=== PATIENT | female | born 1960 | race American Indian/Alaskan Native ===

== ENCOUNTER 2018-08-24 15:34 | Inpatient (IN) | payer SELFPAY ==
[2018-08-24 15:56] VITALS: O2SAT 98; BMI 37.5
--- NOTE | 2018-08-24 16:08 | ED PDOC ---
Arrival/HPI - General Time Seen by Provider: 08/24/18 15:43 - History of Present Illness Narrative History of Present Illness (Text): 08/24/18 16:06 Time/Duration: Other (2 days) Symptom Onset: Gradual Symptom Course: Improving Activities at Onset: Light Context: Home Past Medical History - Provider Review Nursing Documentation Reviewed: Yes - Cardiac Hx Cardiac Disorders: Yes Hx Angina: Yes (needle-like, intermittent) Hx Hypotension: Yes - Pulmonary Hx Respiratory Disorders: Yes (RAMAN) Other/Comment: quit smoking 3 years ago - Neurological Hx Neurological Disorder: Yes Hx Seizures: Yes (No seizures since her 20s) - HEENT Hx HEENT Disorder: No - Renal Hx Renal Disorder: No - Endocrine/Metabolic Hx Endocrine Disorders: No - Hematological/Oncological Hx Blood Disorders: Yes Hx Anemia: Yes (hgb 5.9 on 05/09/14) Hx Blood Transfusions: Yes (May 09-2013) Hx Blood Transfusion Reaction: No - Integumentary Hx Dermatological Disorder: No - Musculoskeletal/Rheumatological Hx Musculoskeletal Disorders: Yes (numbness in toes) Hx Falls: No - Gastrointestinal Hx Gastrointestinal Disorders: No - Genitourinary/Gynecological Hx Genitourinary Disorders: Yes (abnormal vaginal bleeding w/ abdominal and pelvic pain) Other/Comment: Fibroid uterus - Psychiatric Hx Psychophysiologic Disorder: No Hx Substance Use: No - Surgical History Other/Comment: No Romero - 2003Ectopic Pregnancies - , - Anesthesia Hx Anesthesia: Yes Hx Anesthesia Reactions: Yes (given "gas" during labor had reaction) Hx Malignant Hyperthermia: No - Suicidal Assessment Feels Threatened In Home Enviroment: No Family/Social History - Physician Review Nursing Documentation Reviewed: Yes Family/Social History: Unknown Family HX Smoking Status: Former Smoker Hx Alcohol Use: No Hx Substance Use: No Allergies/Home Meds Allergies/Adverse Reactions: Allergies FISH Allergy (Verified 08/24/18 16:09) RASH Review of Systems - Physician Review All systems were reviewed & negative as marked: Yes - Review of Systems Constitutional: absent: Fevers, Night Sweats Respiratory: absent: SOB Cardiovascular: absent: Chest Pain Gastrointestinal: absent: Diarrhea, Nausea, Vomiting Genitourinary Female: absent: Urine Output Changes Musculoskeletal: absent: Back Pain, Neck Pain Skin: Other (+right mouth droop) Neurological: Headache, Other (+tingling in right hand and foot). absent: Dizziness Physical Exam Vital Signs Reviewed: Yes Vital Signs Temp Pulse Resp BP Pulse Ox 08/24/18 15:48 97.6 F 77 18 155/88 H 98 Temperature: Afebrile Blood Pressure: Hypertensive Pulse: Regular Respiratory Rate: Normal Appearance: Positive for: Well-Appearing, Non-Toxic, Comfortable Pain Distress: None Mental Status: Positive for: Alert and Oriented X 3 Medical Decision Making ED Course and Treatment: 08/24/18 16:07 Impression: 57 year old female presenting to the emergency department for high blood pressure. Plan: -- Reassess and disposition Prior Visits: Notes and results from previous visits were reviewed. Patient was last seen in the emergency department on Progress Notes: Disposition/Present on Arrival - Present on Arrival History of DVT/PE: No History of Uncontrolled Diabetes: No Urinary Catheter: No History of Decub. Ulcer: No History Surgical Site Infection Following: None - Disposition
--- NOTE | 2018-08-24 16:09 | ED PDOC ---
Arrival/HPI - General Time Seen by Provider: 08/24/18 15:43 Past Medical History - Cardiac Hx Cardiac Disorders: Yes Hx Angina: Yes (needle-like, intermittent) Hx Hypotension: Yes - Pulmonary Hx Respiratory Disorders: Yes (RAMAN) Other/Comment: quit smoking 3 years ago - Neurological Hx Neurological Disorder: Yes Hx Seizures: Yes (No seizures since her 20s) - HEENT Hx HEENT Disorder: No - Renal Hx Renal Disorder: No - Endocrine/Metabolic Hx Endocrine Disorders: No - Hematological/Oncological Hx Blood Disorders: Yes Hx Anemia: Yes (hgb 5.9 on 05/09/14) Hx Blood Transfusions: Yes (May 09-2013) Hx Blood Transfusion Reaction: No - Integumentary Hx Dermatological Disorder: No - Musculoskeletal/Rheumatological Hx Musculoskeletal Disorders: Yes (numbness in toes) Hx Falls: No - Gastrointestinal Hx Gastrointestinal Disorders: No - Genitourinary/Gynecological Hx Genitourinary Disorders: Yes (abnormal vaginal bleeding w/ abdominal and pelvic pain) Other/Comment: Fibroid uterus - Psychiatric Hx Psychophysiologic Disorder: No Hx Substance Use: No - Surgical History Other/Comment: No Romero - 2003Ectopic Pregnancies - , - Anesthesia Hx Anesthesia: Yes Hx Anesthesia Reactions: Yes (given "gas" during labor had reaction) Hx Malignant Hyperthermia: No - Suicidal Assessment Feels Threatened In Home Enviroment: No Family/Social History Smoking Status: Former Smoker Hx Alcohol Use: No Hx Substance Use: No Allergies/Home Meds Allergies/Adverse Reactions: Allergies MDX Shellfish [Shellfish] Allergy (Intermediate, Verified 08/24/18 16:08) RASH Physical Exam Vital Signs Temp Pulse Resp BP Pulse Ox 08/24/18 15:48 97.6 F 77 18 155/88 H 98 Disposition/Present on Arrival - Present on Arrival History of DVT/PE: No History of Uncontrolled Diabetes: No Urinary Catheter: No History of Decub. Ulcer: No History Surgical Site Infection Following: None - Disposition
--- NOTE | 2018-08-24 16:26 | CT ---
Date of service: 08/24/2018 PROCEDURE: CT HEAD WITHOUT CONTRAST. HISTORY: Code Stroke COMPARISON: None available. TECHNIQUE: Axial computed tomography images were obtained through the head/brain without intravenous contrast. Radiation dose: Total exam DLP = 942.14 mGy-cm. This CT exam was performed using one or more of the following dose reduction techniques: Automated exposure control, adjustment of the mA and/or kV according to patient size, and/or use of iterative reconstruction technique. FINDINGS: HEMORRHAGE: No intracranial hemorrhage. BRAIN: No mass effect or edema. No atrophy or chronic microvascular ischemic changes. VENTRICLES: Unremarkable. No hydrocephalus. CALVARIUM: Unremarkable. PARANASAL SINUSES: Unremarkable as visualized. No significant inflammatory changes. MASTOID AIR CELLS: Unremarkable as visualized. No inflammatory changes. OTHER FINDINGS: None. IMPRESSION: No evidence of acute infarct. Normal examination. The findings in this examination were discussed by telephone with Dr. Nava at 4:22 p.m. on 08/24/2018.
--- NOTE | 2018-08-24 16:27 | EDPD ---
HPI Stroke - General Time Seen by Provider: 08/24/18 15:43 Chief Complaint: High Blood Pressure Historian: Patient, Family (Daughter) - History of Present Illness Narrative History of Present Illness (Free Text): 08/24/18 16:06 A 57 year old female, whose past medical history includes low blood pressure, presents to the emergency department accompanied by daughter complaining of high blood pressure since 2 days ago. Patient reports experiencing associated headache, tingling in right hand and foot, and right sided mouth drooping since this morning which resolved 3 hours ago. Patient notes her baseline blood pressure is 100/60. Patient denies any fever, chills, shortness of breath, chest pain, diarrhea, nausea, vomiting, urinary symptoms, back pain, neck pain, dizziness, or any other complaints. 08/24/18 20:49 Onset:: This morning Timing: Currently Symptomatic Context: Home Associated Symptoms: Numbness (+tingling in right hand and foot), other (+head ache and right sided mouth droop; +voice change (deeper)) rTPA Inclusion/Exclusion - Refusal of Treatment Patient Refused Treatment: No - Inclusion Criteria for Altepase Patient is 18 years or Older: Yes The Clinical Diagnosis of Ischemic Stroke That is Causing a Potentially Disabling Neurological Deficit: Yes Time of Onset is Well Established to be Less Than 270 Minute Before Treatment Would Begin: No Risk/Benefit Discussed With Patient/Family Member Present: Yes - Exclusion Criteria for Altepase Uncontrolled Hypertension at Time of Treatment (Systolic BP above 185 or Diastolic BP above 110 mmHg): No Past Medical History - Provider Review Nursing Documentation Reviewed: Yes - Cardiac Hx Cardiac Disorders: Yes Hx Angina: Yes (needle-like, intermittent) Hx Hypotension: Yes - Pulmonary Hx Respiratory Disorders: Yes (RAMAN) Other/Comment: quit smoking 3 years ago - Neurological Hx Neurological Disorder: Yes Hx Seizures: Yes (No seizures since her 20s) - HEENT Hx HEENT Disorder: No - Renal Hx Renal Disorder: No - Endocrine/Metabolic Hx Endocrine Disorders: No - Hematological/Oncological Hx Blood Disorders: Yes Hx Anemia: Yes (hgb 5.9 on 05/09/14) Hx Blood Transfusions: Yes (May 09-2013) Hx Blood Transfusion Reaction: No - Integumentary Hx Dermatological Disorder: No - Musculoskeletal/Rheumatological Hx Musculoskeletal Disorders: Yes (numbness in toes) Hx Falls: No - Gastrointestinal Hx Gastrointestinal Disorders: No - Genitourinary/Gynecological Hx Genitourinary Disorders: Yes (abnormal vaginal bleeding w/ abdominal and pelvic pain) Other/Comment: Fibroid uterus - Psychiatric Hx Psychophysiologic Disorder: No Hx Substance Use: No - Surgical History Other/Comment: No Romero - 2003Ectopic Pregnancies - , - Anesthesia Hx Anesthesia: Yes Hx Anesthesia Reactions: Yes (given "gas" during labor had reaction) Hx Malignant Hyperthermia: No - Suicidal Assessment Feels Threatened In Home Enviroment: No Allergies/Home Meds Allergies/Adverse Reactions: Allergies FISH Allergy (Verified 08/24/18 16:09) RASH Review of Systems - Physician Review All systems were reviewed & negative as marked: Yes - Review of Systems Constitutional: absent: Fevers, Night Sweats Respiratory: absent: SOB Cardiovascular: absent: Chest Pain Gastrointestinal: absent: Diarrhea, Nausea, Vomiting Genitourinary Female: absent: Urine Output Changes Musculoskeletal: absent: Back Pain, Neck Pain Skin: Other (+right sided mouth droop) Neurological: Headache, Other (+tingling in right hand and foot). absent: Dizziness ED Stroke Physical Exam Vital Signs Reviewed: Yes Vital Signs Temp Pulse Resp BP Pulse Ox 08/24/18 15:48 97.6 F 77 18 155/88 H 98 Temperature: Afebrile Blood Pressure: Hypertensive Pulse: Regular Respiratory Rate: Normal Appearance: Positive for: Well-Appearing, Non-Toxic, Comfortable Pain Distress: None Mental Status: Positive for: Alert and Oriented X 3 - Systems Exam Head: Present: Atraumatic, Normocephalic Pupils: Present: PERRL Extroacular Muscles: Present: EOMI Conjunctiva: Present: Normal Mouth: Present: Moist Mucous Membranes Neck: Present: Normal Range of Motion Respiratory/Chest: Present: Clear to Auscultation, Good Air Exchange. No: Respiratory Distress, Accessory Muscle Use Cardiovascular: Present: Regular Rate and Rhythm, Normal S1, S2. No: Murmurs Abdomen: Present: Normal Bowel Sounds. No: Tenderness, Distention, Peritoneal Signs Genitourinary/Pelvic Exam: Present: NI. No: C, E Back: Present: GCS, CN, SP Upper Extremity: Present: Normal Inspection. No: Cyanosis, Edema Lower Extremity: Present: Normal Inspection. No: Edema Neurologic: Present: GCS=15, CN II-XII Intact, Speech Normal, Motor Func Grossly Intact, Normal Sensory Function, Normal Cerebellar Funct, Gait Normal, Normal 2Pt Descrimination. No: Pronator Drift, Facial Droop, Dysmetric Finger to Nose, Dysmetric Heel to Chin Skin: Present: Warm, Dry, Normal Color. No: Rashes Lymphatic: Present: OX3, NI, NC Psychiatric: Present: Alert, Oriented x 3, Normal Insight, Normal Concentration Medical Decision Making ED Course and Treatment: 08/24/18 16:07 Impression: 57 year old presenting to the emergency room complaining of high blood pressure. Likely TIA given hx of recurrent symptoms with self-resolution in the past. BP unremarkable in ED. Will seek imaging and labs given code stroke. Plan: -- Type and screen -- Head CT -- EKG -- Labs -- Stroke team consult -- CBC -- COAGs -- Chest X-ray -- IV fluids -- Reassess and disposition Prior Visits: Notes and results from previous visits were reviewed. Progress Notes: 08/24/18 16:07 COD STROKE called, given TIA symptoms that have resolved in past 24 hours. 08/24/18 16:24 Procedure: Head CT without contrast Impression: No evidence of acute infarct. Normal examination. The findings in this examination were discussed by telephone with Dr. Nava at 4:22 p.m. on 08/24/2018. Dictator: Juve Lovelace MD 08/24/18 16:40 EKG: Ordered, reviewed, and independently interpreted the EKG. Rate : 77 BPM Rhythm : NSR Interpretation : No stemi. 08/24/18 17:53 Appreciate consult w/ Dr. Aviles: MRI and admission Appreciate consult w/ Dr. Margie beavers: to admit to her service pt in NAD 08/24/18 18:32 Procedure: Chest X-ray Impression: No active disease. Dictator: Wilber Dahl MD - RAD Interpretation Radiology Orders: 08/24/18 16:10 HEAD W/O (CODE STROKE) [CT] Stat CHEST PORTABLE [RAD] Stat - Medication Orders Current Medication Orders: Sodium Chloride (Sodium Chloride 0.9%) 1,000 mls @ 100 mls/hr IV .Q10H TONY - Scribe Statement The provider has reviewed the documentation as recorded by the Scribe Lisbeth Calderon All medical record entries made by the Scribe were at my direction and personally dictated by me. I have reviewed the chart and agree that the record accurately reflects my personal performance of the history, physical exam, medical decision making, and the department course for this patient. I have also personally directed, reviewed, and agree with the discharge instructions and disposition. NIHSS Scale (Moro) Time Performed: 16:07 - How Severe is the Stoke Baseline Level of Consciousness: 0=Alert LOC to Questions: 0=Both comments correct LOC to commands: 0=Obeys both correctly Best Gaze: 0=Normal Visual: 0=No visual loss Facial: 0=Normal Motor Arm - Left: 0=No drift Motor Arm - Right: 0=No drift Motor Leg - Left: 0=No drift Motor Leg - Right: 0=No drift Limb Ataxia: 0=Absent Sensory: 0=Normal Best Language: 0=No aphasia Dysarthia: 0=Normal articulation Extinction & Inattention (Neglect): 0=Normal, no object Score: 0 Risk Level: No Stroke Risk Disposition/Present on Arrival - Present on Arrival Any Indicators Present on Arrival: No History of DVT/PE: No History of Uncontrolled Diabetes: No Urinary Catheter: No History of Decub. Ulcer: No History Surgical Site Infection Following: None - Disposition Have Diagnosis and Disposition been Completed?: Yes Diagnosis: TIA (transient ischemic attack) Disposition: HOSPITALIZED Disposition Time: 17:55 Patient Problems: Current Active Problems Problem Status Onset TIA (transient ischemic attack) Acute Condition: GOOD
[2018-08-24] MEDS: Sodium Chloride 0.9% 1,000 ML IV SCH (16:30)
[2018-08-24 16:59] LABS: EOS # 0.2 (0.0-0.7); EOS % 5.3 % (1.5-5.0); GRAN # 1.89 (1.4-6.5); GRAN % 53.1 % (50.0-68.0); HEMOGLOBIN 15.7 g/dL (12.0-16.0); LYMPH # 1.3 (1.2-3.4); LYMPH % 35.4 % (22.0-35.0); MEAN CELL VOLUME 91.1 fl (80.0-105.0); MEAN CORPUSCULAR HEMOGLOBIN 30.5 pg (25.0-35.0); MEAN CORPUSCULAR HGB CONC 33.5 g/dl (31.0-37.0); MEAN PLATELET VOLUME 9.5 fl (7.0-11.0); MONO # 0.2 (0.1-0.6); MONO % 6.2 % (1.0-6.0); RBC 5.15 10^6/uL (3.5-6.1); RED CELL DISTRIBUTION WIDTH 13.6 % (11.5-14.5); WHITE BLOOD COUNT 3.6 10^3/uL (4.5-11.0)
[2018-08-24 17:03] LABS: INR 0.97; PARTIAL THROMBOPLASTIN TIME 28.9 Seconds (25.1-36.5)
[2018-08-24 17:06] LABS: ALB/GLOB RATIO 1.1 (1.1-1.8); ALBUMIN 4.1 g/dL (3.0-4.8); ALT/SGPT 42 U/L (7-56); AST/SGOT 42 U/L (14-36); BLOOD UREA NITROGEN 24 mg/dL (7-21); CALCIUM 9.2 mg/dL (8.4-10.5); GFR NON-AFRICAN AMERICAN 39; HDL CHOLESTEROL 58 mg/dL (29-60)
[2018-08-24 17:17] LABS: LDL CHOLESTEROL 130 mg/dL (0-129)
[2018-08-24 17:20] LABS: TROPONIN I < 0.01 ng/mL
--- NOTE | 2018-08-24 17:34 | RAD ---
Date of service: 08/24/2018 HISTORY: Code Stroke COMPARISON: No prior. FINDINGS: LUNGS: No active pulmonary disease. PLEURA: No significant pleural effusion identified, no pneumothorax apparent. CARDIOVASCULAR: No atherosclerotic calcification present No radiographic findings to suggest acute or significant cardiovascular disease. OSSEOUS STRUCTURES: No significant abnormalities. VISUALIZED UPPER ABDOMEN: Normal. OTHER FINDINGS: None. IMPRESSION: No active disease.
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
[2018-08-25] MEDS: Sodium Chloride 0.9% 1,000 ML IV SCH (05:02)
--- NOTE | 2018-08-25 06:19 | MRI ---
Date of service: 08/24/2018 PROCEDURE: MRI BRAIN WITHOUT CONTRAST HISTORY: weakness COMPARISON: Noncontrast head CT from 08/24/2018. TECHNIQUE: Multiplanar, multisequence MR images of the brain were obtained without intravenous contrast enhancement. FINDINGS: HEMORRHAGE: None DWI: No evidence of an acute or early subacute infarction. BRAIN PARENCHYMA: Pelaez-white matter differentiation is preserved. There is no mass, mass effect or abnormal extra-axial fluid collection. There is no territorial infarction. The midline sagittal structures are normal. VENTRICLES: The ventricles are normal in size, shape and configuration. CRANIUM: There is normal bone marrow signal pattern. ORBITS: Grossly unremarkable. PARANASAL SINUSES/MASTOIDS: There is mild mucosal thickening in the paranasal sinuses and small mastoid effusions VASCULAR SYSTEM: There are normal signal voids in the larger intracranial arteries. OTHER FINDINGS: None. IMPRESSION: No acute intracranial abnormality. Specifically, no evidence for acute infarction.
[2018-08-25 07:53] LABS: HEMOGLOBIN 12.2 g/dL (12.0-16.0); MEAN CELL VOLUME 90.9 fl (80.0-105.0); MEAN CORPUSCULAR HEMOGLOBIN 29.3 pg (25.0-35.0); MEAN CORPUSCULAR HGB CONC 32.2 g/dl (31.0-37.0); MEAN PLATELET VOLUME 9.4 fl (7.0-11.0); RBC 4.17 10^6/uL (3.5-6.1); RED CELL DISTRIBUTION WIDTH 13.8 % (11.5-14.5); WHITE BLOOD COUNT 3.4 10^3/uL (4.5-11.0)
[2018-08-25 09:13] LABS: ALBUMIN 3.6 g/dL (3.0-4.8); ALT/SGPT 40 U/L (7-56); AST/SGOT 66 U/L (14-36); BLOOD UREA NITROGEN 21 mg/dL (7-21); CALCIUM 8.9 mg/dL (8.4-10.5); GFR NON-AFRICAN AMERICAN > 60
[2018-08-25 09:26] VITALS: RESP 20
--- NOTE | 2018-08-25 10:19 | CARD ---
APPROVED REPORT Date of service: 08/24/2018 EKG Measurement Heart [id number] <Conclusion> Normal sinus rhythm Possible Left atrial enlargement Nonspecific T wave abnormality
--- NOTE | 2018-08-25 16:32 | CP.PCM.DIS ---
<José Luis Ospina - Last Filed: 08/25/18 17:07> Provider - Provider Date of Admission: 08/24/18 17:56 Attending physician: Todd Flores MD Time Spent in preparation of Discharge (in minutes): 45 Diagnosis - Discharge Diagnosis (1) TIA (transient ischemic attack) Status: Acute Priority: High Hospital Course - Lab Results Lab Results: Most Recent Lab Values WBC 3.4 10^3/uL (4.5-11.0) L 08/25/18 07:00 RBC 4.17 10^6/uL (3.5-6.1) 08/25/18 07:00 Hgb 12.2 g/dL (12.0-16.0) D 08/25/18 07:00 Hct 37.9 % (36.0-48.0) 08/25/18 07:00 MCV 90.9 fl (80.0-105.0) 08/25/18 07:00 MCH 29.3 pg (25.0-35.0) 08/25/18 07:00 MCHC 32.2 g/dl (31.0-37.0) 08/25/18 07:00 RDW 13.8 % (11.5-14.5) 08/25/18 07:00 Plt Count 272 10^3/uL (120.0-450.0) 08/25/18 07:00 MPV 9.4 fl (7.0-11.0) 08/25/18 07:00 Gran % 53.1 % (50.0-68.0) 08/24/18 16:32 Lymph % (Auto) 35.4 % (22.0-35.0) H 08/24/18 16:32 [place] % (Auto) 6.2 % (1.0-6.0) H 08/24/18 16:32 Eos % (Auto) 5.3 % (1.5-5.0) H 08/24/18 16:32 Baso % (Auto) 0.0 % (0.0-3.0) 08/24/18 16:32 Gran # 1.89 (1.4-6.5) 08/24/18 16:32 Lymph # (Auto) 1.3 (1.2-3.4) 08/24/18 16:32 [place] # (Auto) 0.2 (0.1-0.6) 08/24/18 16:32 Eos # (Auto) 0.2 (0.0-0.7) 08/24/18 16:32 Baso # (Auto) 0.00 K/mm3 (0.0-2.0) 08/24/18 16:32 PT 11.0 SECONDS (9.4-12.5) 08/24/18 16:32 INR 0.97 08/24/18 16:32 APTT 28.9 Seconds (25.1-36.5) 08/24/18 16:32 Sodium 139 mmol/L (132-148) 08/25/18 07:00 Potassium 4.3 mmol/L (3.6-5.0) 08/25/18 07:00 Chloride 107 mmol/L (98-107) 08/25/18 07:00 Carbon Dioxide 28 mmol/L (21-33) 08/25/18 07:00 Anion Gap 8 (10-20) L 08/25/18 07:00 BUN 21 mg/dL (7-21) 08/25/18 07:00 Creatinine 0.9 mg/dl (0.7-1.2) 08/25/18 07:00 Est GFR ( Amer) > 60 08/25/18 07:00 Est GFR (Non-Af Amer) > 60 08/25/18 07:00 POC Glucose (mg/dL) 93 mg/dL (65-110) 08/24/18 16:26 Random Glucose 111 mg/dL (70-110) H 08/25/18 07:00 Hemoglobin A1c 6.0 % (4.2-6.5) 08/24/18 16:32 Calcium 8.9 mg/dL (8.4-10.5) 08/25/18 07:00 Phosphorus 3.9 mg/dL (2.5-4.5) 08/25/18 07:00 Magnesium 2.1 mg/dL (1.7-2.2) 08/25/18 07:00 Total Bilirubin 0.5 mg/dL (0.2-1.3) 08/25/18 07:00 AST 66 U/L (14-36) H D 08/25/18 07:00 ALT 40 U/L (7-56) 08/25/18 07:00 Alkaline Phosphatase 98 U/L (38-126) 08/25/18 07:00 Troponin I < 0.01 ng/mL 08/24/18 16:32 Total Protein 7.2 g/dL (5.8-8.3) 08/25/18 07:00 Albumin 3.6 g/dL (3.0-4.8) 08/25/18 07:00 Globulin 3.5 gm/dL 08/25/18 07:00 Albumin/Globulin Ratio 1.0 (1.1-1.8) L 08/25/18 07:00 Triglycerides 137 mg/dL (35-160) 08/24/18 16:32 Cholesterol 231 mg/dL (130-200) H 08/24/18 16:32 LDL Cholesterol Direct 130 mg/dL (0-129) H 08/24/18 16:32 HDL Cholesterol 58 mg/dL (29-60) 08/24/18 16:32 TSH 3rd Generation 1.12 mIU/mL (0.46-4.68) 08/25/18 07:00 Blood Type B POSITIVE 08/24/18 16:25 Antibody Screen Negative 08/24/18 16:25 BBK History Checked Patient has bt 08/24/18 16:25 - Hospital Course Hospital Course: Pt is a 57 yo female, with a PMH of hypotension, and fibroid uterus who presents to the ED accompanied by daughter complaining of high blood pressure since 2 days ago. Pt states her BP was 204/76, then she took it again 3 hours later 166/94. She experienced left facial droop at this time. She states her right hand and right foot became numb with associated headache. Pt states this has never happened before. Pt states she experienced some dizziness during this episode along with mild chest tightness and SOB. During her admission pt received a MRI which was negative. Pt was cleared by neurology. Pt advised to follow up with her primary care physician with in 1 week. Pt states symptoms have resolved. - Date & Time of H&P Date of H&P: 08/25/18 Time of H&P: 07:00 Discharge Exam - Head Exam Head Exam: ATRAUMATIC, NORMAL INSPECTION, NORMOCEPHALIC - Eye Exam Eye Exam: EOMI - ENT Exam ENT Exam: Mucous Membranes Moist - Respiratory Exam Respiratory Exam: NORMAL BREATHING PATTERN, UNREMARKABLE. absent: Accessory Muscle Use, Wheezes, Respiratory Distress, Stridor - Cardiovascular Exam Cardiovascular Exam: REGULAR RHYTHM, RRR, +S1, +S2 - GI/Abdominal Exam GI & Abdominal Exam: Normal Bowel Sounds, Unremarkable - Extremities Exam Extremities exam: full ROM, pedal pulses present - Neurological Exam Neurological exam: Alert, Oriented x3 - Psychiatric Exam Psychiatric exam: Normal Affect, Normal Mood - Skin Skin Exam: Dry, Normal Color, Warm Discharge Plan - Discharge Medications Prescriptions: Aspirin [Ecotrin] 81 mg PO DAILY #30 tabec Atorvastatin [Lipitor] 40 mg PO DIN #30 tab - Follow Up Plan Condition: GOOD Disposition: HOME/ ROUTINE Instructions: Transient Ischemic Attack (DC) Additional Instructions: 1. please follow up with your primary care physician within 1 week 2. you are being given a prescription for aspirin 81mg and Lipitor to be taken daily for your cholesterol 3. if your symptoms return or worsen, please go to the nearest emergency room <Todd Flores - Last Filed: 08/25/18 18:29> Provider - Provider Date of Admission: 08/24/18 17:56 Attending physician: Todd Flores MD Hospital Course - Lab Results Lab Results: Most Recent Lab Values WBC 3.4 10^3/uL (4.5-11.0) L 08/25/18 07:00 RBC 4.17 10^6/uL (3.5-6.1) 08/25/18 07:00 Hgb 12.2 g/dL (12.0-16.0) D 08/25/18 07:00 Hct 37.9 % (36.0-48.0) 08/25/18 07:00 MCV 90.9 fl (80.0-105.0) 08/25/18 07:00 MCH 29.3 pg (25.0-35.0) 08/25/18 07:00 MCHC 32.2 g/dl (31.0-37.0) 08/25/18 07:00 RDW 13.8 % (11.5-14.5) 08/25/18 07:00 Plt Count 272 10^3/uL (120.0-450.0) 08/25/18 07:00 MPV 9.4 fl (7.0-11.0) 08/25/18 07:00 Gran % 53.1 % (50.0-68.0) 08/24/18 16:32 Lymph % (Auto) 35.4 % (22.0-35.0) H 08/24/18 16:32 [place] % (Auto) 6.2 % (1.0-6.0) H 08/24/18 16:32 Eos % (Auto) 5.3 % (1.5-5.0) H 08/24/18 16:32 Baso % (Auto) 0.0 % (0.0-3.0) 08/24/18 16:32 Gran # 1.89 (1.4-6.5) 08/24/18 16:32 Lymph # (Auto) 1.3 (1.2-3.4) 08/24/18 16:32 [place] # (Auto) 0.2 (0.1-0.6) 08/24/18 16:32 Eos # (Auto) 0.2 (0.0-0.7) 08/24/18 16:32 Baso # (Auto) 0.00 K/mm3 (0.0-2.0) 08/24/18 16:32 PT 11.0 SECONDS (9.4-12.5) 08/24/18 16:32 INR 0.97 08/24/18 16:32 APTT 28.9 Seconds (25.1-36.5) 08/24/18 16:32 Sodium 139 mmol/L (132-148) 08/25/18 07:00 Potassium 4.3 mmol/L (3.6-5.0) 08/25/18 07:00 Chloride 107 mmol/L (98-107) 08/25/18 07:00 Carbon Dioxide 28 mmol/L (21-33) 08/25/18 07:00 Anion Gap 8 (10-20) L 08/25/18 07:00 BUN 21 mg/dL (7-21) 08/25/18 07:00 Creatinine 0.9 mg/dl (0.7-1.2) 08/25/18 07:00 Est GFR ( Amer) > 60 08/25/18 07:00 Est GFR (Non-Af Amer) > 60 08/25/18 07:00 POC Glucose (mg/dL) 93 mg/dL (65-110) 08/24/18 16:26 Random Glucose 111 mg/dL (70-110) H 08/25/18 07:00 Hemoglobin A1c 6.0 % (4.2-6.5) 08/24/18 16:32 Calcium 8.9 mg/dL (8.4-10.5) 08/25/18 07:00 Phosphorus 3.9 mg/dL (2.5-4.5) 08/25/18 07:00 Magnesium 2.1 mg/dL (1.7-2.2) 08/25/18 07:00 Total Bilirubin 0.5 mg/dL (0.2-1.3) 08/25/18 07:00 AST 66 U/L (14-36) H D 08/25/18 07:00 ALT 40 U/L (7-56) 08/25/18 07:00 Alkaline Phosphatase 98 U/L (38-126) 08/25/18 07:00 Troponin I < 0.01 ng/mL 08/24/18 16:32 Total Protein 7.2 g/dL (5.8-8.3) 08/25/18 07:00 Albumin 3.6 g/dL (3.0-4.8) 08/25/18 07:00 Globulin 3.5 gm/dL 08/25/18 07:00 Albumin/Globulin Ratio 1.0 (1.1-1.8) L 08/25/18 07:00 Triglycerides 137 mg/dL (35-160) 08/24/18 16:32 Cholesterol 231 mg/dL (130-200) H 08/24/18 16:32 LDL Cholesterol Direct 130 mg/dL (0-129) H 08/24/18 16:32 HDL Cholesterol 58 mg/dL (29-60) 08/24/18 16:32 TSH 3rd Generation 1.12 mIU/mL (0.46-4.68) 08/25/18 07:00 Blood Type B POSITIVE 08/24/18 16:25 Antibody Screen Negative 08/24/18 16:25 BBK History Checked Patient has bt 08/24/18 16:25 Attending/Attestation - Attestation I have personally seen and examined this patient.: Yes I have fully participated in the care of the patient.: Yes I have reviewed all pertinent clinical information, including history, physical exam and plan: Yes Notes (Text): 08/25/18 18:22 57 year old female who was admitted with complaint of hypertensive episode at home and facial droop with right hand/foot numbness. She was admitted to rule out TIA/CVA. CT head and MRI brain were negative. She was started on aspirin and statin. Her blood pressure was within acceptable range while in hospital. She was seen by neurology and cleared for discharge. Patient is discharged home to follow up with pmd. Continue with aspirin and statin. Monitor blood pressure at home and pmd's office. Counselled on low salt diet. If BP is elevated in doctor's office can start antihypertensive per pmd. Todd Flores MD Hospitalist.
[2018-08-25 16:41] VITALS: BP 147/85; PULSE 78; TEMP 98.4
--- NOTE | 2018-08-26 09:13 | CARD ---
APPROVED REPORT Date of service: 08/25/2018 EXAM: Two-dimensional and M-mode echocardiogram with Doppler and color Doppler. Other Information Quality : AverageRhythm : INDICATION POSSIBLE TIA 2D DIMENSIONS Left Atrium (2D)3.8 (1.6-4.0cm)IVSd1.2 (0.7-1.1cm) LVDd4.8 (3.9-5.9cm)PWd1.1 (0.7-1.1cm) LVDs3.1 (2.5-4.0cm)FS (%) 35.5 % LVEF (%)64.0 (>50%) M-Mode DIMENSIONS Aortic Root2.90 (2.2-3.7cm)Aortic Cusp Exc.2.20 (1.5-2.0cm) Aortic Valve AoV Peak Rbjrwzjk285.0cm/s Mitral Valve MV E Jojzlleq53.1cm/sMV A Fxztvmai26.7cm/sE/A ratio1.2 TDI E/Lateral E'0.0E/Medial E'0.0 Tricuspid Valve TR Peak Lazsrowy338dx/sRAP [id number] Peak Gr.38mmHg [id number] LEFT VENTRICLE The left ventricle is normal size. There is normal left ventricular wall thickness. The left ventricular function is normal. The left ventricular ejection fraction is within the normal range. There is normal LV segmental wall motion. RIGHT VENTRICLE The right ventricle is normal size. ATRIA The left atrium is mildly dilated. The right atrium size is normal. The interatrial septum is intact with no evidence for an atrial septal defect. AORTIC VALVE The aortic valve is normal in structure. MITRAL VALVE The mitral valve is normal in structure. Mitral regurgitation is trace. TRICUSPID VALVE The tricuspid valve is normal in structure. There is trace tricuspid regurgitation. PULMONIC VALVE The pulmonic valve is not well visualized. GREAT VESSELS The aortic root is normal in size. PERICARDIAL EFFUSION There is no pericardial effusion. <Conclusion> The left ventricle is normal size. There is normal left ventricular wall thickness. The left ventricular function is normal.
--- NOTE | 2018-08-27 10:02 | CON ---
DATE: 08/25/2018 Neurology consult called by Dr. Flores. HISTORY OF PRESENT ILLNESS: Ms. year-old female with a past medical history of fibroid uterus and hypertension, which was diagnosed several years ago. The patient said she was at work and suddenly her left face started becoming tingly and jerky with no aphasia or weakness, then she had right hand and left foot numbness. The numbness on the right foot is on the anterolateral aspect from the left toe midfoot between the toe and calcaneum. There is no pain associated with this. She has never had this similar episodes. She also had some dizziness and some chest pain. REVIEW OF SYSTEMS: A 12-point systems was obtained and it was negative for all other review of systems. PAST MEDICAL HISTORY: As above. PAST SURGICAL HISTORY: skull fracture 3 years old. FAMILY HISTORY: Mother at 41 of HIV and AIDS. Father at 42 of HIV and AIDS. SOCIAL HISTORY: She has smoked for many years, she quit in 2011. Denies alcohol or tobacco. She is currently working. ALLERGIES: TO SHELLFISH. PHYSICAL EXAMINATION: NEUROLOGICAL: Exam is completely normal including gait where she walked tandem with no drift and no asymmetry of sensory findings or motor findings. There was equal strength bilaterally. Reflexes are +1 and +2 bilaterally. LABORATORY DATA: Labs were normal including chemistry. Only significant finding is cholesterol of 231, LDL of 130. CAT scan of the head was done and was normal. MRI of the brain was done and showed the following. No ischemic event was noted. No stroke was noted. IMPRESSION: A 57-year-old woman who likely had hypertensive encephalopathy, but no stroke or transient ischemic attack on imaging. Her symptoms are completely resolved. She is not a t-PA candidate. There are no neurological deficits noted. PLAN: 1. Strict control of hypertension. 2. Start on statin immediately. 3. Start aspirin. Thank you for this interesting consult, we will follow jean carlos Andrea Cool MD
== END 2018-08-25 18:15 | disposition home or self-care (01) | DRG 79 ==
LOC: ED 15:34 → ERH 17:56 → 3RNO 21:36
PROVIDERS: ADMIT Hospitalist; ATTEND Internal Medicine
DX: I67.4 Hypertensive encephalopathy (principal); R29.810 Facial weakness; D25.9 Leiomyoma of uterus, unspecified; Z87.891 Personal history of nicotine dependence